=== PATIENT | male | born 1965 | race Caucasian/White ===

== ENCOUNTER 2019-11-25 17:58 | Emergency (ER) | payer MEDICAID ==
[~2019-11-25] VITALS: Ht 170.2 cm; Wt 68.0 kg
[2019-11-25 18:10] VITALS: Ht 170.2 cm; Wt 68.0 kg
[2019-11-25 20:36] VITALS: BP 128/89
== END 2019-11-25 20:36 | disposition home or self-care (01) ==
LOC: ED 17:58
DX: F10.129 Alcohol abuse with intoxication, unspecified (principal); R41.82 Altered mental status, unspecified
CPT/HCPCS: J3411; J3490; J7030